=== PATIENT | female | born 1970 | race Caucasian/White ===

== ENCOUNTER 2016-12-31 20:46 | Emergency (ER) | payer OTHER, BC ==
[~2016-12-31] VITALS: Ht 160 cm; Wt 72.5 kg
[~2016-12-31 20:46] MED LIST: BENTYL10 MG PO; DILAUDID2 MG PO; DOXYCYCLINE HY100 MG PO; Dilaudid PO; ESTRADIOL1 MG PO; Estrace PO; FEMTRACE PO; FLUOXETINE HCL40 MG PO; Lovenox SC; MEDROXYPROGEST2.5 MG PO; NABUMETONE500 MG PO; PERCOCET 5/31 TABLET PO; PRAVASTATIN SOD40 MG PO; PROVERA CYCRIN PO; PROzac PO; ZOFRAN4 MG PO; Zantac,Taladine PO
[2017-01-01] MEDS ORDERED: FLEXERIL5 MG PO (00:56)
[2017-01-01] MEDS ORDERED: NORCO 5/3251 TABLET PO (00:56)
[2017-01-01] MEDS ORDERED: NAPROSYN500 MG PO (00:56)
[2017-01-01 01:04] VITALS: BP 132/74
== END 2017-01-01 01:06 | disposition home or self-care (01) ==
LOC: RME 20:46 → EME 20:46 → RME 01-01 01:06
DX: S16.1XXA Strain of muscle, fascia and tendon at neck level, initial encounter (principal); S29.012A Strain of muscle and tendon of back wall of thorax, initial encounter; V43.52XA Car driver injured in collision with other type car in traffic accident, initial encounter; Z87.891 Personal history of nicotine dependence
CPT/HCPCS: 72050; 72070; 99281; 99284; J1885

== ENCOUNTER 2017-12-19 03:32 | Inpatient (IN) | payer BC ==
[~2017-12-19] VITALS: Ht 160 cm; Wt 63.8 kg
[~2017-12-19 03:32] MED LIST changes: +FLEXERIL5 MG PO; +NAPROSYN500 MG PO; +NORCO 5/3251 TABLET PO
[2017-12-19 03:58] LABS: HEMATOCRIT 41.4 % (36.0-46.0); HEMOGLOBIN 14.2 G/DL (11.9-15.5); MCHC 34.3 G/DL (30.0-36.0); MCV 96.3 FL (83-99); PLATELET COUNT 257 K/uL (156-360); RBC DIS.WIDTH-CV 12.4 % (11.8-14.6); RBC DIS.WIDTH-SD 44.3 % (39-53); WHITE BLOOD COUNT 6.5 K/uL (4.1-10.2)
[2017-12-19 04:06] LABS: CHLORIDE 104 mEq/L (99-109); POTASSIUM 3.9 mEq/L (3.7-5.4); SODIUM 140 mEq/L (136-147)
[2017-12-19 04:08] LABS: GLUCOSE 115 mg/dL (70-99)
[2017-12-19 04:12] LABS: GFR ESTIMATE (CALCULATED) > 59 mL/min/
[2017-12-19 04:13] LABS: UREA NITROGEN (BUN) 13 mg/dL (9-23)
[2017-12-19 05:05] LABS: TROP-I INTERPRETATION NEGATIVE; TROPONIN-I < 0.01 ng/mL (0.0-0.30)
[2017-12-19 06:11] LABS: ALBUMIN 4.2 g/dL (3.2-4.8)
[2017-12-19 06:13] LABS: TOTAL PROTEIN 6.6 g/dL (6.4-8.3)
[2017-12-19 06:15] LABS: TOTAL BILIRUBIN 4.9 mg/dL (0.0-1.0)
[2017-12-19 06:16] LABS: ALKALINE PHOSPHATASE 328 IU/L (3-129)
[2017-12-19 06:19] LABS: AST (GOT) 787 IU/L (2-34); DIRECT BILIRUBIN 3.6 mg/dL (0.0-0.3)
[2017-12-19 06:20] LABS: ALT (GPT) 1611 IU/L (3-49); LIPASE 60 U/L (1.0-51.0)
[2017-12-19] MEDS ORDERED: MIDNITE PM CHE1 EACH PO (10:07)
[2017-12-19 12:55] VITALS: BP 136/85
[2017-12-19 15:07] LABS: GAMMA-GT 241 IU/L (4-73)
[2017-12-19 20:08] VITALS: BP 151/68
[2017-12-20 00:44] VITALS: BP 142/74
[2017-12-20 04:48] VITALS: BP 129/77
[2017-12-20 07:14] LABS: BASOPHIL (%) 0.3 % (0-1); EOSINOPHIL (%) 1.6 % (0-5); EOSINOPHIL COUNT 0.1 K/uL (0-0.3); HEMATOCRIT 34.5 % (36.0-46.0); IMMATURE GRANULOCYTE (%) 0.2 % (0.0-0.7); LYMPHOCYTE (%) 26.7 % (15-42); LYMPHOCYTE COUNT 1.6 K/uL (1.0-2.8); MCHC 33.9 G/DL (30.0-36.0); MCV 97.2 FL (83-99); MONOCYTE COUNT 0.6 K/uL (0-0.8); NEUTROPHIL (%) 62.2 % (45-76); NEUTROPHIL COUNT 3.8 K/uL (1.8-6.4); PLATELET COUNT 204 K/uL (156-360); RBC DIS.WIDTH-CV 12.4 % (11.8-14.6); RBC DIS.WIDTH-SD 44.5 % (39-53); RED BLOOD COUNT 3.55 M/uL (3.80-5.20); WHITE BLOOD COUNT 6.1 K/uL (4.1-10.2)
[2017-12-20 07:37] LABS: HEMOGLOBIN 11.7 G/DL (11.9-15.5)
[2017-12-20 07:54] VITALS: BP 146/80
[2017-12-20 07:54] LABS: ALBUMIN 3.3 G/DL (3.2-4.8); ALKALINE PHOSPHATASE 216 IU/L (3-129); AST (GOT) 462 IU/L (2-34); CHLORIDE 106 MEQ/L (99-109); CREATININE 0.8 MG/DL (0.6-1.3); GFR ESTIMATE (CALCULATED) > 59 mL/min/; GLUCOSE 132 mg/dL (70-99); POTASSIUM 3.7 MEQ/L (3.7-5.4); SODIUM 139 MEQ/L (136-147); TOTAL BILIRUBIN 4.8 MG/DL (0.0-1.0); TOTAL PROTEIN 4.9 G/DL (6.4-8.3); UREA NITROGEN (BUN) 10 mg/dL (9-23)
[2017-12-20 07:57] LABS: ALT (GPT) 1005 IU/L (3-49)
[2017-12-20] MEDS ORDERED: ZOFRAN ODT4 MG PO (13:41)
[2017-12-20] MEDS ORDERED: CEFTIN500 MG PO (13:42)
== END 2017-12-20 14:41 | disposition home or self-care (01) | DRG 419 ==
LOC: EME 03:32 → EDOF 10:46 → ENRESERV 10:46 → CANRESERV 11:09 → ENRESERV 12:19 → 2EAST 12:49
PROVIDERS: Family Medicine; Internal Medicine Gastroenterology
PROC: 0FT44ZZ Resection of Gallbladder, Percutaneous Endoscopic Approach (ICD-10-PCS; principal; 2017-12-19)
DX: K80.12 Calculus of gallbladder with acute and chronic cholecystitis without obstruction (principal); E80.6 Other disorders of bilirubin metabolism; R74.0 Nonspecific elevation of levels of transaminase and lactic acid dehydrogenase [LDH]; R74.8 Abnormal levels of other serum enzymes; R94.5 Abnormal results of liver function studies; F17.210 Nicotine dependence, cigarettes, uncomplicated
CPT/HCPCS: 71046; 74177; 74181; 76705; 80048; 80053; 80076; 82977; 83690; 84484; 85025; 85027; 85610; 85730; 86038; 88304; 93005; 99281; 99285; G0480; J0330; J1100; J1170; J1885; J2250; J2405; J2710; J2765; J3010; J7030; J7120; J7643; S0020; S0074

== ENCOUNTER 2017-12-24 17:55 | Emergency (ER) | payer BC ==
[~2017-12-24] VITALS: Ht 160 cm; Wt 63.0 kg
[~2017-12-24 17:55] MED LIST changes: +CEFTIN500 MG PO; +MIDNITE PM CHE1 EACH PO; +ZOFRAN ODT4 MG PO
[2017-12-24 18:07] VITALS: BP 143/86
== END 2017-12-24 18:58 | disposition left against medical advice (07) ==
LOC: RME 17:55 → EME 17:55 → RME 18:58
DX: R74.0 Nonspecific elevation of levels of transaminase and lactic acid dehydrogenase [LDH] (principal); E80.7 Disorder of bilirubin metabolism, unspecified; K21.9 Gastro-esophageal reflux disease without esophagitis; F32.9 Major depressive disorder, single episode, unspecified; F17.200 Nicotine dependence, unspecified, uncomplicated; Z90.49 Acquired absence of other specified parts of digestive tract; Z88.0 Allergy status to penicillin
CPT/HCPCS: 99281; 99283

== ENCOUNTER 2017-12-25 10:59 | Emergency (ER) | payer BC ==
[~2017-12-25] VITALS: Ht 160 cm; Wt 62.4 kg
[2017-12-25 11:33] LABS: HEMATOCRIT 38.8 % (36.0-46.0); HEMOGLOBIN 13.6 G/DL (11.9-15.5); MCH 33.7 PG (29.0-34.0); MCHC 35.1 G/DL (30.0-36.0); PLATELET COUNT 258 K/uL (156-360); RBC DIS.WIDTH-CV 12.5 % (11.8-14.6); RBC DIS.WIDTH-SD 44.5 % (39-53); RED BLOOD COUNT 4.04 M/uL (3.80-5.20); WHITE BLOOD COUNT 5.2 K/uL (4.1-10.2)
[2017-12-25 11:42] LABS: CHLORIDE 103 mEq/L (99-109); POTASSIUM 3.8 mEq/L (3.7-5.4); SODIUM 139 mEq/L (136-147)
[2017-12-25 11:44] LABS: GLUCOSE 104 mg/dL (70-99); TOTAL PROTEIN 6.6 g/dL (6.4-8.3)
[2017-12-25 11:47] LABS: ALKALINE PHOSPHATASE 302 IU/L (3-129)
[2017-12-25 11:48] LABS: CREATININE 0.8 mg/dL (0.6-1.3); GFR ESTIMATE (CALCULATED) > 59 mL/min/
[2017-12-25 11:49] LABS: AST (GOT) 660 IU/L (2-34); UREA NITROGEN (BUN) 12 mg/dL (9-23)
[2017-12-25 11:53] LABS: ALT (GPT) 1409 IU/L (3-49); TOTAL BILIRUBIN 3.6 mg/dL (0.0-1.0)
[2017-12-25 14:09] LABS: DIRECT BILIRUBIN 2.6 mg/dL (0.0-0.3)
[2017-12-25 16:30] VITALS: BP 130/87
== END 2017-12-25 16:33 | disposition home or self-care (01) ==
LOC: EME 10:59
DX: K75.9 Inflammatory liver disease, unspecified (principal); Z98.890 Other specified postprocedural states; Z90.49 Acquired absence of other specified parts of digestive tract; Z88.0 Allergy status to penicillin; F17.200 Nicotine dependence, unspecified, uncomplicated
CPT/HCPCS: 74176; 80053; 81003; 82248; 85027; 99281; 99284; J2405; J3010; J7030

== ENCOUNTER → 2018-01-08 | Outpatient (CLI) | payer BC ==
[~2018-01-08] MED LIST changes: +PHAZYME250 MG PO; +PROBIOTIC1 EAC1 PO; +PROMETHAZINE HC25 M1 PO
[2018-01-08 14:13] LABS: ALBUMIN 3.8 G/DL (3.2-4.8); CHLORIDE 105 MEQ/L (99-109); SODIUM 140 MEQ/L (136-147); TOTAL BILIRUBIN 1.3 MG/DL (0.0-1.0)
[2018-01-08 14:29] LABS: ALKALINE PHOSPHATASE 172 IU/L (3-129); ALT (GPT) 552 IU/L (3-49); AST (GOT) 365 IU/L (2-34); CREATININE 0.7 MG/DL (0.6-1.3); GFR ESTIMATE (CALCULATED) > 59 mL/min/; GLUCOSE 90 mg/dL (70-99); TOTAL PROTEIN 6.1 G/DL (6.4-8.3); UREA NITROGEN (BUN) 11 mg/dL (9-23)
[2018-01-09 14:14] LABS: HEPATITIS B SURFACE ANTIGEN Nonreactive
[2018-01-09 14:16] LABS: ANTI-HEPATITIS A VIRUS (IGM) Nonreactive; ANTI-HEPATITIS B CORE (IGM) Nonreactive
[2018-01-09 14:20] LABS: HEPATITIS C ANTIBODY REACTIVE
== END | disposition home or self-care (01) ==
LOC: AMB 10:30
PROVIDERS: Internal Medicine Gastroenterology
DX: B19.20 Unspecified viral hepatitis C without hepatic coma (principal); K76.0 Fatty (change of) liver, not elsewhere classified; K21.9 Gastro-esophageal reflux disease without esophagitis; F17.210 Nicotine dependence, cigarettes, uncomplicated; Z88.0 Allergy status to penicillin
CPT/HCPCS: 80053; 80074; 88307; 88313; C1726; J2250; J3010